=== PATIENT | male | born 1940 | race Caucasian/White ===

== ENCOUNTER → 2021-09-04 | Outpatient (CLI) | payer MEDICARE, BC ==
--- NOTE | 2021-09-04 12:35 | KCIC ---
EXAMINATION: Magnetic resonance imaging (MRI) of the lumbar spine without contrast 09/04/2021 9:45 AM HISTORY: Pelvic perineal pain. Sciatica on the right side.. TECHNIQUE: Multiplanar multi-weighted MRI of the lumbar spine was performed without intravenous contr ast using the standard lumbar spine protocol. Contrast information: None administered. COMPARISON: MRI lumbar spine 09/02/2016. FINDINGS: There is 2 mm retrolisthesis of L1 on L2. There is 6 mm retrolisthesis of L2 on L3. There is 4 mm ret rolisthesis of L3 on L4. This 4 mm retrolisthesis of L4 on L5. There is marrow edema identified asymm etric to the right at L2 with a linear area of T1 signal hypointensity. A definite fracture is not vi sualized, although CT may be more sensitive. Modic type II endplate degenerative changes identified a t L1-L2. Modic type I endplate degenerative changes are identified at L2-L3 and L3-L4. Conus medullar is terminates at L1. Distal spinal cord signal intensity is normal in all sequences. Abdominal aorta is normal in caliber. No suspicious intraperitoneal abnormality is identified. Retroaortic left renal vein is identified. There is no paraspinal soft tissue abnormality. There is moderate to advanced di sc height loss at L3-L4, progressed since 09/02/2016. There is moderate disc height loss at L1-L2, stab le. Mild disc height loss at L2-L3 and L4-L5 appear stable. Moderate disc height loss at L5-S1 with M odic type II endplate degenerative changes appear stable. T12-L1: Disc is normal in configuration. No significant facet arthropathy. No neuroforaminal or spina l canal stenosis. L1-L2: There is a disc bulge asymmetric to the right with right far lateral disc protrusion. Mild fac et arthropathy. Moderate right and mild left neuroforaminal stenosis. Mild spinal canal stenosis. L2-L3: There is a circumferential disc bulge with right far lateral disc extrusion. Mild facet arthro estebna. Severe right and moderate severe left neural foraminal stenosis. Moderate spinal canal stenosi s. Findings appear progressed since prior examination. L3-L4: There is a posterior disc osteophyte complex. Moderate severe left and moderate right facet ar thropathy. Severe left and moderate right neuroforaminal stenosis. Moderate spinal canal stenosis. Fi ndings appear similar to the prior examination. L4-L5: There is a circumferential disc bulge. Moderate severe facet arthropathy. Severe left and mode rate right neuroforaminal stenosis. Mild to moderate spinal canal stenosis with narrowing the left la teral recess. L5-S1: There is a posterior discussed by complex. Severe facet arthropathy. Moderate to severe bilate ral neuroforaminal stenosis. No significant spinal canal stenosis. IMPRESSION: Moderate to advanced lumbar spondylosis as described in detail above. There is asymmetric marrow millie a involving the right hemivertebral body at L2 with a linear area of T1 signal hypointensity which co uld represent a fracture. No significant height loss is identified. Further evaluation with CT of the lumbar spine is recommended. Electronically signed by: Meagan Moreau MD (09/04/2021 12:33 PM) [id number]
== END ==
LOC: KCIC MRI 09:09
PROVIDERS: ATTEND Family Medicine
DX: M47.817 Spondylosis without myelopathy or radiculopathy, lumbosacral region (principal); M48.07 Spinal stenosis, lumbosacral region; M51.26 Other intervertebral disc displacement, lumbar region; M54.31 Sciatica, right side
CPT/HCPCS: 72148